=== PATIENT | male | born 1950 | race Caucasian/White ===

== ENCOUNTER 2017-03-04 08:36 | Inpatient (IN) | payer BC ==
[2017-02-10 11:08] VITALS: BMI 40.0
--- NOTE | 2017-02-10 11:42 | PAT Medication Instructions ---
Service Date Feb 10, 2017. Current Home Medication List Amlodipine (Norvasc), 5 MG PO QAM Aspirin (Aspirin Ec), 81 MG PO QAM Carvedilol (Coreg), 12.5 MG PO BID Cholecalciferol (Vitamin D3), 1 TAB PO BID Fluoxetine (Prozac), 20 MG PO HS Melatonin (Melatonin Maximum Strengt), 1 TAB PO HS Omeprazole (Prilosec), 20 MG PO QAM Simvastatin (Zocor), 40 MG PO QPM Valsartan (Diovan), 160 MG PO QAM [Allergy Relief], 1 DOSE PO PRN Medication Instructions For Your Scheduled Surgery - Hold the following medications the morning of surgery: [Allergy Relief], 1 DOSE PO PRN Valsartan (Diovan), 160 MG PO QAM Cholecalciferol (Vitamin D3), 1 TAB PO BID - Take the following medications the morning of surgery with a sip of water: Amlodipine (Norvasc), 5 MG PO QAM Aspirin (Aspirin Ec), 81 MG PO QAM (okay to continue per surgeon) Carvedilol (Coreg), 12.5 MG PO BID Omeprazole (Prilosec), 20 MG PO QAM - Take the following medications as scheduled the night before surgery: [Allergy Relief], 1 DOSE PO PRN Simvastatin (Zocor), 40 MG PO QPM Melatonin (Melatonin Maximum Strengt), 1 TAB PO HS Cholecalciferol (Vitamin D3), 1 TAB PO BID Fluoxetine (Prozac), 20 MG PO HS Carvedilol (Coreg), 12.5 MG PO BID If you have any questions please call us at [phone] or [phone] or [phone]
[2017-02-10 12:14] LABS: BASO % 0.4 %; BASO ABS # 0.02 K/uL (0-0.2); COMPLETE YES; EOS % 3.9 %; HEMATOCRIT 37.4 % (42-52); IG% 0.2 %; LYMPH % 22.5 %; LYMPH ABS # 1.16 K/uL (1.2-3.4); MEAN CELL VOLUME 86.6 fL (80-100); MEAN CORPUSCULAR HEMOGLOBIN 30.6 pg (25-34); MEAN CORPUSCULAR HGB CONC 35.3 g/dl (32-36); MEAN PLATELET VOLUME 8.8 fL (7.4-10.4); MONO % 9.5 %; NEUT % 63.5 %; PLATELET COUNT 141 K/uL (130-400); RED BLOOD COUNT 4.32 M/uL (4.7-6.1); WHITE BLOOD COUNT 5.16 K/uL (4.8-10.8)
--- NOTE | 2017-02-10 12:18 | DIAGNOSTIC IMAGING REPORT ---
CHEST PREADMISSION(PA/LAT) CLINICAL HISTORY: Preoperative chest COMPARISON STUDY: No previous studies for comparison. FINDINGS: The heart is borderline enlarged. There is no failure. There is no lobar consolidation. Slight increased density visualized in the lateral view posteriorly, likely represents a summation of vertebral bodies and vascular markings.[ No pleural effusions are visualized. IMPRESSION: No active disease in the chest. Electronically signed by: Sammy Larkin M.D. 02/10/2017 12:16 PM Dictated Date/Time: 02/10/2017 12:15 PM
[2017-02-10 12:20] LABS: BUN/CREATININE RATIO 18.3 (10-20); CALCIUM 9.3 mg/dl (8.5-10.1); CREATININE 1.2 mg/dl (0.60-1.40); URINE APPEARANCE CLEAR (CLEAR); URINE BILIRUBIN NEG (NEG); URINE COLOR YELLOW; URINE NITRITE NEG (NEG); URINE PH 6.5 (4.5-7.5); URINE SPECIFIC GRAVITY 1.016 (1.000-1.030); UROBILINOGEN NEG (NEG); ZZUR CULT IF INDIC CLEAN CATCH NO
[2017-02-10 12:24] LABS: PARTIAL THROMBOPLASTIN RATIO 1.1; PROTHROMBIN TIME (PATIENT) 10.5 SECONDS (9.0-12.0)
[2017-02-10 12:29] LABS: ESTIMATED AVERAGE GLUCOSE 128 mg/dl; HA1C FLAG Normal (Normal)
[2017-02-10 12:31] LABS: MANUAL MICROSCOPIC REQUIRED? NO; REVIEW REQ? NO
--- NOTE | 2017-03-03 14:14 | HISTORY & PHYSICAL EXAMINATION ---
DATE OF ADMISSION: 03/04/2017 CHIEF COMPLAINT: Left knee pain. HISTORY OF PRESENT ILLNESS: The patient is a 66-year-old gentleman with known osteoarthritis about his left knee. He has had previous corticosteroid injection by his primary care physician with minimal relief. He takes some [id number] anti-inflammatories and Tylenol intermittently as needed. He states severe pain and limitation with activities of daily living and now desires to proceed with left total knee arthroplasty. PAST MEDICAL HISTORY: Coronary artery disease, hypertension, hypercholesterolemia, sleep apnea with CPAP use. PAST SURGICAL HISTORY: Colonoscopy. MEDICATIONS: Simvastatin 40 mg daily, carvedilol 6.25 mg 2 times daily, amlodipine 10 mg daily, Diovan 160 mg daily, melatonin 5 mg daily, vitamin D3 daily, aspirin 81 mg daily, vitamin D3 400 units daily, valsartan 160 mg daily, and fluoxetine 20 mg daily. ALLERGIES: No known drug allergies. SOCIAL HISTORY AND REVIEW OF SYSTEMS: Noncontributory. PHYSICAL EXAMINATION: GENERAL: Well-nourished, well-developed elderly male who appears his stated age. HEENT: Normocephalic, atraumatic, extraocular movements intact, oropharynx pink and moist. NECK: Supple without adenopathy. LUNGS: Clear to auscultation bilaterally. HEART: Regular rate and rhythm. ABDOMEN: Soft, nontender, nondistended. EXTREMITIES: The upper extremity within normal limits. The left knee has a slight varus alignment. He complains primarily of medial compartment pain. His range of motion from 0 to 125 degrees. X-RAYS: X-rays were reviewed. He has a varus aligned knee. He has bone on bone arthritis of the medial compartment on the flexion view with complete loss of the joint space. ASSESSMENT: Left knee degenerative joint disease. PLAN: Risks versus benefits were discussed, consent was obtained. Will proceed with a left total knee arthroplasty upon preop workup and medical clearance.
[~2017-03-04] VITALS: Ht 188 cm; Wt 143.3 kg
[2017-03-04] VITALS (7 sets, daily range): BP systolic 125–155; BP diastolic 74–99; PULSE 61–82; TEMP 35.9–36.8; O2SAT 91–97; Ht 188 cm; Wt 143.3 kg
[2017-03-04] MEDS: TRANEXAMIC ACID INJ 1,000 MG in SODIUM CHLORIDE 0.9% 100ML 100 ML IV SCH ×2 (06:30→11:00)
[~2017-03-04 08:36] MED LIST: ACETAMINOPHEN 500 MG TAB PO SCH; ALLERGY RELIEF PO; AMLO-110 PO; ASPI81TA28 PO; BUPIVACAINE 0.25% 30 ML VIAL ONE; BUPIVACAINE 0.5 % 5 MG/1 ML PF 10ML VIAL ONE; CARV12.52 PO; CEFAZOLIN 3000 MG/65 ML D5W 65 ML IV SCH; CHOL20007 PO; CeleBREX 200 MG CAP PO SCH; DEXAMETHASONE 4 MG TAB PO SCH; DEXAMETHASONE SOD INJ 4 MG/ML VIAL ONE; DVN/160 PO; EpINEphrine INJ 1MG/ML AMP 1 MG/ML AMP ONE; FAMOTIDINE 20 MG TAB PO SCH; FENTANYL CITRATE INJ 50 MCG/1 ML 2 ML VIAL ONE; FLUO20CA35 PO; GABAPENTIN 300 MG CAP PO SCH; LACTATED RINGER'S 1000ML 1,000 ML IV SCH; LACTATED RINGER'S 1000ML 500 ML IV ONE; LACTATED RINGER'S 1000ML IV SCH; LIDOCAINE HCL 2% 2 ML VIAL (20MG/ML) ONE; MELATAB2 PO; METOCLOPRAMIDE HCL 10 MG TAB PO SCH; MIDAZOLAM HCL 1 MG/ML 2ML VIAL ONE; ONDANSETRON INJ 2 MG/ML 2 ML VIAL ONE; PRLSR20 PO; PROPOFOL IV EMULSION 10 MG/ML 20 ML VIAL IV ONE; ROPIVACAINE 5MG/ML 30 ML 150 MG, BUPIVACAINE/EPINEPHR 0.5% MPF 30 ML, KETOROLAC TROMETH... INFIL SCH; SIMV40TA2 PO
[2017-03-04] MEDS ORDERED: TYLOTC500 PO (09:08)
[2017-03-04] MEDS ORDERED: OXYC-57 PO (09:08)
--- NOTE | 2017-03-04 09:16 | History & Physical Bridge Note ---
H&P Re-Evaluation Bridge Note: I have examined the patient, reviewed the History & Physical and in the interval since the performance of the History & Physical I have noted the following changes of clinical significance: No changes noted
[2017-03-04] MEDS ORDERED: BACITRACIN 50000 UNIT VIAL ONE (11:03)
[2017-03-04] MEDS ORDERED: POVIDONE-IODINE OP SOLN 30 ML BTL ONE (11:03)
[2017-03-04] MEDS ORDERED: ORTHO JOINT ANESTHETIC ONE (11:03)
[2017-03-04] MEDS ORDERED: FENTANYL CITRATE INJ 50 MCG/1 ML 2 ML VIAL IV PRN (11:45)
[2017-03-04] MEDS ORDERED: ATROPINE SULFATE 0.1 MG/ML 5ML SYR IV PRN (11:45)
[2017-03-04] MEDS ORDERED: EpHEDrine SULFATE INJ 50 MG/ML AMP IV PRN (11:45)
[2017-03-04] MEDS ORDERED: ONDANSETRON INJ 2 MG/ML 2 ML VIAL IV PRN ×2 (11:45→13:15)
[2017-03-04] MEDS ORDERED: MIDAZOLAM HCL 1 MG/ML 2ML VIAL ONE ×3 (11:52→12:32)
--- NOTE | 2017-03-04 12:27 | [facility] Post Operative Brief Note ---
Immediate Operative Summary Operative Date Mar 04, 2017. Pre-Operative Diagnosis Left Knee Degenerative Joint Disease Post-Operative Diagnosis Left Knee Degenerative Joint Disease Procedure(s) Performed Left Total Knee Arthroplasty Surgeon Dr. Colin [facility] Manager Surgeon(s) Yonathan Huertas PA-C Estimated Blood Loss 20ML Findings severe OA Specimens Permanent: A. Left Knee Bone and Tissue Complication(s) None Disposition Recovery Room / PACU
--- NOTE | 2017-03-04 12:45 | OPERATIVE REPORT ---
DATE OF OPERATION: 03/04/2017 PREOPERATIVE DIAGNOSIS: Osteoarthritis, left knee. POSTOPERATIVE DIAGNOSIS: Osteoarthritis, left knee. PROCEDURE: Left total knee arthroplasty. SURGEON: Dr. Ovalle. [employer] SUPERVISOR: ERICA Delgado ANESTHESIA: Spinal. COMPLICATIONS: None. IMPLANTS USED: Femoral size 6 with fixation pegs, tibia size 5, tibial poly 13, and patella size 39. OPERATION AND FINDINGS: Following induction of spinal anesthesia, the patient's left leg was prepped and draped in the usual sterile manner. Limb was exsanguinated with an Esmarch bandage and tourniquet was inflated to 350 mmHg. A longitudinal incision was made anteriorly. Subcutaneous tissue was sharply dissected. Electrocautery was used for hemostasis. Prepatellar bursa was incised and median parapatellar incision was performed. Patella was everted and the knee was flexed. Fat pad was removed to aid in visualization and the anterior and posterior cruciate ligaments were removed. The medial face of the tibia was cleared of soft tissue first with a Bovie and a Heart elevator. This tissue was retracted posteriorly using a blunt Hohmann. A Gresham retractor was used to expose the synovium above on the anterior aspect of the femur and this was removed down to bone. The PSI guide was placed on the distal femur and two pins were placed anteriorly and kept in position and two additional pins were placed distally and removed. The distal femoral cutting block was placed in position and the distal femoral cut was used in the +0 setting. Next, the cutting block was removed and the femoral 6 block was placed in the distal end of the femur. Care was taken to ensure appropriate external rotation and feeler gauge was used to ensure no notching would occur. The femoral block was centered on the distal femur and in the medial and lateral direction and was fixed using two bone screws. The gold pins were then removed. The oscillating saw was used to create the bone cuts and the distal femoral cutting block was removed and the reciprocating saw was used to further trim the femoral cuts as well as a deep in the area for the trochlear groove. Next, posterior condyle remnants were removed. Following this, a meniscal clamp and knife were utilized to remove the anterior portion of both medial and lateral meniscus. The proximal tibia PSI guide was placed into position and the proximal tibial cutting guide was screwed into position. The extra medullary alignment guide was utilized to ensure appropriate alignment. The proximal tibia was cut and the proximal tibial cutting block was removed and this bone fragment was removed. The appropriate guide was used to perform the notch cut on the distal femur and a lamina sawing and assembly supervisor and a cochlear knife were utilized to finish both medial and lateral meniscectomies to remove any remnants of the posterior or anterior cruciate ligaments. Following this, the distal femoral component was impacted into position and blunt Emily was used to sublux the tibia anteriorly. The proximal tibia was sized and a 5 tibial tray was chosen as the size to be used. This was put into position and appropriate external rotation and a double check with extramedullary alignment guide was performed. The canal for the tibial stem was prepared first with a 17 mm drill and then the punch and a mallet and the trial tibial poly was placed. A 13 was chosen the size to be used. It was brought to extension and the patella was prepared with the patellar reamer. A 39 component was chosen the size to be used. The trial component was placed and knee was taken through a full range of motion and there was found to be no lateral subluxation of the tibia. No lateral release was required. The trials were all removed. The final components were obtained and assembled. Cement was mixed. The knee was thoroughly irrigated and the ortho mix was injected about the knee joint. The final components were cemented into position. After thoroughly suctioning and drying the bone ends, all excess cement was removed. The knee was held in extension while the cement hardened. The wound was irrigated and closed over a Hemovac drain. #1 Vicryl was used to close the extensor mechanism. Subcutaneous tissues closed using 0 Dexon. Skin was closed with odessa. Sterile dressing of Adaptic, 4 x 4's, sterile Webril, and David was applied. The patient tolerated the procedure well. Due to the complex nature of the procedure, the entire surgery was performed with the operational assistance of ERICA Delgado. The early childhood teacher assistant, under direct supervision, was involved in the actual performance of all aspects of the surgical procedure including hemostasis, tissue retraction and incision, instrument management, patient positioning, and wound closure. DISPOSITION: Recovery room, stable. I attest to the content of the Intraoperative Record and any orders documented therein. Any exception s are noted below.
[2017-03-04] MEDS ORDERED: TAMSULOSIN HCL 0.4 MG CAP PO PRN (13:15)
[2017-03-04] MEDS ORDERED: ALUMINUM/MAGNESIUM/SIMETH (MAALOX MAX) 30 ML UDC PO PRN (13:15)
[2017-03-04] MEDS ORDERED: BISACODYL 10 MG SUPP PR PRN (13:15)
[2017-03-04] MEDS ORDERED: MAGNESIUM HYDROXIDE SUSP 30 ML UDC PO PRN (13:15)
[2017-03-04] MEDS ORDERED: MoRPHine SULFATE 2 MG/ML CARP IV PRN ×2 (13:15→13:30)
[2017-03-04] MEDS ORDERED: TRAMADOL HCL 50 MG TAB PO PRN (13:15)
[2017-03-04] MEDS ORDERED: MoRPHine SULFATE 10 MG/ML CARP/VIAL IV PRN (13:30)
[2017-03-04] MEDS ORDERED: MoRPHine SULFATE 4 MG/ML 1 ML CARP\\VIAL IV PRN (13:30)
--- NOTE | 2017-03-04 13:45 | DIAGNOSTIC IMAGING REPORT ---
TWO VIEWS LEFT KNEE CLINICAL HISTORY: Postoperative examination. FINDINGS: AP and crosstable lateral portable views of the left knee are obtained. A left knee arthroplasty is in near anatomic alignment. There has been undersurface remodeling of the patella. No acute fracture is seen. There are expected postoperative changes around the knee including skin clips, a surgical drain, soft tissue edema, and subcutaneous gas. IMPRESSION: Expected postoperative changes status post left knee arthroplasty. No acute fracture is seen. Electronically signed by: Felix Hernadez M.D. 03/04/2017 1:43 PM Dictated Date/Time: 03/04/2017 1:40 PM
--- NOTE | 2017-03-04 13:52 | Anesthesiology Progress Note ---
Anesthesia Post Op Note Date & Time Mar 04, 2017 at 13:51 Vital Signs Pain Intensity: 0 Vital Signs Past 12 Hours Date Time Temp Pulse Resp B/P (MAP) Pulse Ox O2 Delivery O2 Flow Rate FiO2 03/04/17 13:43 70 20 03/04/17 13:43 70 20 98 03/04/17 13:41 123/82 03/04/17 13:38 64 15 03/04/17 13:38 63 15 98 03/04/17 13:36 137/86 03/04/17 13:35 36.7 66 18 137/86 (97) 98 Nasal Cannula 2 03/04/17 13:33 63 12 03/04/17 13:33 62 12 98 03/04/17 13:32 63 13 03/04/17 13:32 63 13 98 03/04/17 13:31 136/82 03/04/17 13:27 65 22 03/04/17 13:27 67 22 97 03/04/17 13:26 130/84 03/04/17 13:24 65 21 03/04/17 13:24 66 21 99 03/04/17 13:21 120/92 03/04/17 13:19 62 13 03/04/17 13:19 61 13 99 03/04/17 13:16 136/82 03/04/17 13:14 63 12 98 03/04/17 13:14 63 12 03/04/17 13:12 127/89 03/04/17 13:09 59 25 03/04/17 13:09 36.3 58 16 140/88 (102) 99 Mask 10 03/04/17 13:09 62 25 140/88 98 03/04/17 09:00 36.5 61 20 155/99 96 Room Air Notes Mental Status: alert / awake / arousable, participated in evaluation Pt Amnestic to Procedure: Yes Nausea / Vomiting: adequately controlled Pain: adequately controlled Airway Patency, RR, SpO2: stable & adequate BP & HR: stable & adequate Hydration State: stable & adequate Neuraxial Anesthesia: was administered, sensory block is resolving Anesthetic Complications: no major complications apparent
[2017-03-04] MEDS ORDERED: INFLUENZA ADMINISTRATION CHARGE ONE (15:45)
[2017-03-04] MEDS ORDERED: INFLUENZA VIRUS QUAD VACCINE 0.5 ML SYR IM. ONE (15:45)
[2017-03-04] MEDS: D5W AND 1/2NSS + 20MEQ KCL 1,000 ML IV SCH ×2 (15:46→23:59)
[2017-03-04] MEDS: FERROUS GLUCONATE 324 MG TAB PO SCH (17:51)
[2017-03-04] MEDS: KETOROLAC TROMETHAMINE 30 MG/ML VIAL IV. SCH (17:53)
[2017-03-04] MEDS: CEFAZOLIN IV 3,000 MG in DEXTROSE 5% 50ML 50 ML IV SCH (19:57)
[2017-03-04] MEDS: FLUOXETINE HCL 20 MG CAP PO SCH (21:12)
[2017-03-04] MEDS: DOCUSATE SODIUM 100 MG CAP PO SCH (21:12)
[2017-03-04] MEDS: ASPIRIN 81 MG ECTAB PO SCH (21:12)
[2017-03-04] MEDS: SENNA 8.6 MG TAB PO SCH (21:13)
[2017-03-04] MEDS: SIMVASTATIN 40 MG TAB PO SCH (21:13)
[2017-03-04] MEDS: ACETAMINOPHEN 500 MG TAB PO SCH (21:14)
[2017-03-04] MEDS: CARVEDILOL 12.5 MG TAB PO SCH (21:14)
[2017-03-05] MEDS: CEFAZOLIN IV 3,000 MG in DEXTROSE 5% 50ML 50 ML IV SCH (03:41)
[2017-03-05 03:54] VITALS: BP 150/91; PULSE 73; TEMP 36.5; O2SAT 93
[2017-03-05] MEDS: KETOROLAC TROMETHAMINE 30 MG/ML VIAL IV. SCH ×2 (05:35)
[2017-03-05] MEDS: ACETAMINOPHEN 500 MG TAB PO SCH ×3 (05:35→21:04)
[2017-03-05 06:54] VITALS: BP 132/81; PULSE 77; TEMP 36.4; O2SAT 93
[2017-03-05 06:58] LABS: HEMATOCRIT 30.3 % (42-52); MEAN CELL VOLUME 85.8 fL (80-100); MEAN PLATELET VOLUME 9.1 fL (7.4-10.4); PLATELET COUNT 154 K/uL (130-400); RED BLOOD COUNT 3.53 M/uL (4.7-6.1); WHITE BLOOD COUNT 11.67 K/uL (4.8-10.8)
[2017-03-05 07:26] LABS: BUN/CREATININE RATIO 14.9 (10-20); CALCIUM 8.4 mg/dl (8.5-10.1); CREATININE 1.5 mg/dl (0.60-1.40); POTASSIUM 4.2 mmol/L (3.5-5.1)
--- NOTE | 2017-03-05 07:30 | Orthopedic Progress Note ---
Orthopedic Progress Note Date of Service Mar 05, 2017. Subjective Post OP Day: 1 Reports: feeling well Objective N/V intact, dressing C/D/I (Hemovac in place), toes mobile Date Time Temp Pulse Resp B/P (MAP) Pulse Ox O2 Delivery O2 Flow Rate FiO2 03/05/17 06:54 36.4 77 16 132/81 (98) 93 Room Air 03/05/17 03:54 36.5 73 16 150/91 (110) 93 Room Air 03/05/17 00:04 Room Air CPAP 03/04/17 23:13 36.4 75 16 125/74 (91) 91 Room Air 03/04/17 17:16 36.5 78 18 153/92 (112) 97 Nasal Cannula 2.0 03/04/17 16:15 35.9 82 16 150/99 (116) 96 Nasal Cannula 2.0 03/04/17 15:45 Nasal Cannula 2.0 03/04/17 15:15 36.5 77 18 146/90 (108) 95 Nasal Cannula 2.0 03/04/17 14:51 36.4 71 20 129/84 (99) 95 Nasal Cannula 2.0 03/04/17 14:15 36.8 69 16 141/88 (105) 95 Nasal Cannula 2.0 03/04/17 14:15 95 Nasal Cannula 2.0 03/04/17 14:15 95 Nasal Cannula 2.0 03/04/17 13:56 135/86 03/04/17 13:54 66 14 97 03/04/17 13:54 66 14 03/04/17 13:51 130/82 03/04/17 13:49 62 13 03/04/17 13:49 62 13 96 03/04/17 13:46 133/84 03/04/17 13:44 65 17 03/04/17 13:44 65 17 95 03/04/17 13:43 70 20 03/04/17 13:43 70 20 98 03/04/17 13:41 123/82 03/04/17 13:38 64 15 03/04/17 13:38 63 15 98 03/04/17 13:36 137/86 03/04/17 13:35 36.7 66 18 137/86 (97) 98 Nasal Cannula 2 03/04/17 13:33 63 12 03/04/17 13:33 62 12 98 03/04/17 13:32 63 13 03/04/17 13:32 63 13 98 03/04/17 13:31 136/82 03/04/17 13:27 65 22 03/04/17 13:27 67 22 97 03/04/17 13:26 130/84 03/04/17 13:24 65 21 03/04/17 13:24 66 21 99 03/04/17 13:21 120/92 03/04/17 13:19 62 13 03/04/17 13:19 61 13 99 03/04/17 13:16 136/82 03/04/17 13:14 63 12 98 03/04/17 13:14 63 12 03/04/17 13:12 127/89 03/04/17 13:09 59 25 03/04/17 13:09 36.3 58 16 140/88 (102) 99 Mask 10 03/04/17 13:09 62 25 140/88 98 03/04/17 09:00 36.5 61 20 155/99 96 Room Air Laboratory Results 24 Hours: Test 03/05/17 06:08 Hematocrit 30.3 % Hemoglobin 10.6 g/dL Assessment & Plan Assessment: 66 yo male stable POD #1 s/p left TKA Plan: 1. Med management 2. DVT prophylaxis- ASA, SCDs 3. PT/OT 4. D/C planning- home w/ OPPT
--- NOTE | 2017-03-05 07:32 | Discharge Instructions ---
Discharge Instructions Date of Service Mar 05, 2017. Admission Reason for Admission: Left Knee Osteoarthritis Discharge Discharge Diagnosis / Problem: Left knee arthritis Discharge Goals Goal(s): Decrease discomfort, Improve function Activity Recommendations Activity Limitations: as noted below Weightbearing Status: Left weightbearing (as tolerated) . Instructions / Follow-Up Instructions / Follow-Up ACTIVITY RECOMMENDATIONS: SELF CARE INSTRUCTIONS AFTER TOTAL KNEE REPLACEMENT A. You may need to continue a physical therapy program after discharge from the hospital. There are several options available to you. Your doctor will assist you in selecting the best one for you. 1. An out-patient facility 2 to 3 times a week for therapy or home therapy. 2. Continue working on all exercises taught to you in the hospital. Your goals should be to increase bending of your knee to 90 degrees and beyond and to fully straighten your knee. B. You may progress at your own pace from walking with a walker or crutches to a cane; then to no assistive devices. C. Make walking a part of your daily routine. Be up as much as comfortable with rest periods throughout the day. Rest with leg elevation is very important. Use the ice wrap frequently for the first 3-4 weeks. D. There are no restrictions on activities. You may ride in a car, shop, participate in hand i cutter and all social activities. E. Wear the long elastic stockings (ROSAS hose) 20 hours a day for 2 weeks after surgery. They can be removed several times a day for laundering and for a bath. F. You may shower, no tub baths until cleared by your doctor. SPECIAL CARE INSTRUCTIONS: VERY IMPORTANT TO READ AND REVIEW A. There are a few signs you need to watch for after you are home. Call [facility] if you notice any of the followin. Increased severe knee pain. Some pain is expected especially when you exercise. 2. Increased swelling in your leg or knee; pain or swelling of the calf muscle in either lower leg. 3. Any fluid drainage from the incision. 4. Shortness of breath or chest pain. B. Please call [facility] at if you have any concerns or questions about your operation or recovery. The doctor or his nurse will return your call promptly. C. You must take antibiotics before dental work, bladder, bowel or other surgery. Your doctor will provide you with a permanent care to carry describing this precaution. IMPORTANT: * REMEMBER TO TAKE ASPIRIN, 81 MG, TWICE DAILY FOR 4 WEEKS UNLESS OTHERWISE DIRECTED. THIS IS YOUR BLOOD THINNER. * HIGH RISK PATIENTS MAY BE PRESCRIBED A STRONGER BLOOD THINNER. THIS WILL BE PROVIDED AT DISCHARGE. * CALL IF INCREASED PAIN, REDNESS, DRAINAGE OR FEVER GREATER THAT 101. * WEAR ROSAS HOSE 20 HOURS PER DAY FOR 2 WEEKS. Silverlon- This is a large adhesive bandage that contains silver ions. This helps your incision heal by fighting off bacteria and protecting it from the outside environment. You are permitted to shower with this dressing. This will remain on your incision for 7 days and then should be removed. Some visible blood or drainage through the dressing window is normal. If there is significant drainage or leaking noted before the 7 days notify your doctor's office immediately. Once removed, keep incision clean and dry. If there is any drainage or redness noted, please call your surgeon. FOLLOW UP VISIT: If appointment is not already scheduled: Please call [facility] to make a follow-up appointment for 2 weeks after your surgery at . Current Hospital Diet Patient's current hospital diet: AHA Diet (Heart Healthy) Discharge Diet Recommended Diet: AHA Diet (Heart Healthy) Procedures Procedures Performed: Left Total Knee Arthroplasty Pending Studies Studies pending at discharge: no Laboratory Results Hemoglobin A1c Test 02/10/17 11:50 Range/Units Estimated Average Glucose 128 mg/dl Hemoglobin A1c 6.1 H 4.5-5.6 % Medical Emergencies . Who to Call and When: Medical Emergencies: If at any time you feel your situation is an emergency, please call 911 immediately. . Non-Emergent Contact Non-Emergency issues call your: Surgeon Call Non-Emergent contact if: temperature is above 101.5, your pain is not controlled, wound has increased drainage, wound has increased redness . "Provider Documentation" section prepared by Krystian Bowers PA-C. . VTE Core Measure Inpt VTE Proph given/why not?: Other Anticoagulation (ASA 81mg bid), T.E.D. Stockings, SCD's [place] Drug Monitoring Program Search Results: patient reviewed within database, no issues identified
--- NOTE | 2017-03-05 08:33 | Anesthesiology Progress Note ---
Anesthesia Post Op Note Date & Time Mar 05, 2017 at 08:33 Vital Signs Vital Signs Past 12 Hours Date Time Temp Pulse Resp B/P (MAP) Pulse Ox O2 Delivery O2 Flow Rate FiO2 03/05/17 07:20 Room Air 03/05/17 06:54 36.4 77 16 132/81 (98) 93 Room Air 03/05/17 03:54 36.5 73 16 150/91 (110) 93 Room Air 03/05/17 00:04 Room Air CPAP 03/04/17 23:13 36.4 75 16 125/74 (91) 91 Room Air Notes Mental Status: alert / awake / arousable, participated in evaluation Pt Amnestic to Procedure: Yes Nausea / Vomiting: adequately controlled Pain: adequately controlled Airway Patency, RR, SpO2: stable & adequate BP & HR: stable & adequate Hydration State: stable & adequate Neuraxial Anesthesia: was administered, sensory block resolved Anesthetic Complications: no major complications apparent
[2017-03-05] MEDS: OXYCODONE HCL IR 5 MG TAB (IMMEDIATE RELEASE) PO PRN ×2 (09:02→17:27)
[2017-03-05] MEDS: VALSARTAN 80 MG TAB PO SCH (09:03)
[2017-03-05] MEDS: CARVEDILOL 12.5 MG TAB PO SCH ×2 (09:03→21:03)
[2017-03-05] MEDS: MULTIVITAMIN TAB PO SCH (09:03)
[2017-03-05] MEDS: FERROUS GLUCONATE 324 MG TAB PO SCH ×3 (09:04→18:34)
[2017-03-05] MEDS: PANTOprazole SOD 40 MG TAB PO SCH (09:04)
[2017-03-05] MEDS: DOCUSATE SODIUM 100 MG CAP PO SCH ×2 (09:04→21:03)
[2017-03-05] MEDS: ASPIRIN 81 MG ECTAB PO SCH ×2 (09:04→21:03)
[2017-03-05] MEDS: AMLODIPINE BESYLATE 5 MG TAB PO SCH (09:05)
[2017-03-05 09:46] VITALS: BP 151/80; PULSE 71; O2SAT 97
--- NOTE | 2017-03-05 09:53 | Clinical Documentation Query ---
CLINICAL DOCUMENTATION QUERY QUERY 1 OF 2 A 66-year-old gentleman with known osteoarthritis about his left knee. In your clinical opinion is this patient being managed for: ( ) Acute kidney failure ( X ) Not Agree ( ) Other explanation of clinical findings (Please Explain) ( ) Unable to determine (Please Define) ( ) Need to Discuss The medical record reflects the following clinical findings, treatment, and risk factors. Clinical Indicators: Creatine increase from 1.20 to 1.50, Na 135, GFR decrease from 63.5 to 48.5 Treatment: IV hydration Risk Factors: S/P surgical intervention QUERY 2 OF 2 In order to capture a high BMI, documentation of the patient's physical condition must be captured; i.e. obese, overweight, etc. In your clinical opinion is this patient being managed for: ( X ) Obesity ( ) Not Agree ( ) Other explanation of clinical findings (Please Explain) ( ) Unable to determine (Please Define) ( ) Need to Discuss The medical record reflects the following clinical findings, treatment, and risk factors. Clinical Indicators: BMI 40.5 Treatment: Heart healthy diet Risk Factors: s/p surgical intervention, high BMI Please clarify and document your clinical opinion in the progress notes and discharge summary. Terms such as "probable", "suspected", "likely", "questionable", "possible", or "still to be ruled out" are acceptable. IF IN AGREEMENT, YOU MUST DOCUMENT ABOVE DIAGNOSTIC STATEMENT IN DAILY PROGRESS NOTES AND DISCHARGE SUMMARY. This document is not part of the patient's record. Thank You, Liz Wall RN [phone]
[2017-03-05] MEDS: D5W AND 1/2NSS + 20MEQ KCL 1,000 ML IV SCH (10:23)
[2017-03-05 13:29] VITALS: BP 153/80; PULSE 70; O2SAT 97
[2017-03-05 16:17] VITALS: BP 158/84; PULSE 67; TEMP 36.6; O2SAT 97
[2017-03-05] MEDS: CeleBREX 200 MG CAP PO SCH (21:03)
[2017-03-05] MEDS: SENNA 8.6 MG TAB PO SCH (21:38)
[2017-03-05] MEDS: FLUOXETINE HCL 20 MG CAP PO SCH (21:39)
[2017-03-05] MEDS: SIMVASTATIN 40 MG TAB PO SCH (21:39)
[2017-03-05 23:04] VITALS: BP 150/91; PULSE 76; TEMP 36.3; O2SAT 94
[2017-03-06] MEDS: ACETAMINOPHEN 500 MG TAB PO SCH (05:42)
[2017-03-06 06:02] VITALS: BP 147/70; PULSE 70; TEMP 36.4; O2SAT 97
[2017-03-06] MEDS: AMLODIPINE BESYLATE 5 MG TAB PO SCH (07:33)
[2017-03-06] MEDS: FERROUS GLUCONATE 324 MG TAB PO SCH (07:33)
[2017-03-06] MEDS: VALSARTAN 80 MG TAB PO SCH (07:34)
[2017-03-06] MEDS: MULTIVITAMIN TAB PO SCH (07:35)
[2017-03-06] MEDS: OXYCODONE HCL IR 5 MG TAB (IMMEDIATE RELEASE) PO PRN (07:35)
--- NOTE | 2017-03-06 07:45 | Orthopedic Progress Note ---
Orthopedic Progress Note Date of Service Mar 06, 2017. Subjective Post OP Day: 2 Reports: feeling well Objective calves soft nontender, N/V intact, dressing C/D/I, toes mobile Date Time Temp Pulse Resp B/P (MAP) Pulse Ox O2 Delivery O2 Flow Rate FiO2 03/06/17 06:02 36.4 70 16 147/70 (95) 97 Room Air 03/06/17 00:39 Room Air CPAP 03/05/17 23:04 36.3 76 16 150/91 (110) 94 CPAP 03/05/17 16:17 36.6 67 17 158/84 (108) 97 Room Air 03/05/17 15:10 Room Air 03/05/17 13:29 70 16 153/80 (104) 97 Room Air 03/05/17 09:46 71 97 Assessment & Plan Assessment: 66 yo male stable POD #2 s/p left TKA Plan: 1. Med management 2. DVT prophylaxis- ASA, SCDs 3. PT/OT 4. D/C planning- home w/ OPPT
[2017-03-06] MEDS ORDERED: ASPEC81 PO (07:47)
[2017-03-06] MEDS ORDERED: ONDA8TAB12 PO (07:47)
[2017-03-06] MEDS ORDERED: ACET-24 PO (07:47)
[2017-03-06] MEDS ORDERED: RXC5 PO (07:47)
[2017-03-06] MEDS ORDERED: CLB200 PO (07:47)
[2017-03-06] MEDS: CARVEDILOL 12.5 MG TAB PO SCH (07:54)
[2017-03-06] MEDS: PANTOprazole SOD 40 MG TAB PO SCH (07:54)
[2017-03-06] MEDS: CeleBREX 200 MG CAP PO SCH (07:55)
[2017-03-06] MEDS: ASPIRIN 81 MG ECTAB PO SCH (07:55)
[2017-03-06] MEDS: DOCUSATE SODIUM 100 MG CAP PO SCH (07:55)
[2017-03-06 09:21] VITALS: BP 147/70; PULSE 70; TEMP 36.4; O2SAT 97
--- NOTE | 2017-03-08 13:50 | DISCHARGE SUMMARY ---
DISCHARGE DIAGNOSIS: Degenerative joint disease left knee. SECONDARY DIAGNOSES: Coronary artery disease, hypertension, hypercholesterolemia, sleep apnea with CPAP use. CONSULTS: None. COMPLICATIONS: None. PROCEDURES: Left total knee arthroplasty performed by Dr. Ovalle 03/04/2017. BRIEF HISTORY: As dictated in the history and physical. HOSPITAL SUMMARY: The patient was admitted on the above-noted date and had the above-noted surgery performed which he tolerated well. On the first postoperative day he was feeling well, neurovascularly intact, dressings clean, dry and intact. Toes were mobile. Vital signs were stable. He was afebrile. Hemoglobin was 10.6 and he was started on physical therapy protocol and continued on DVT prophylaxis and pain management. By his second postoperative day, he was continuing to feel well. He was progressing with his physical therapy. Dressings were intact. Toes were mobile. Neurovascular intact. Calves were nontender. Vital signs were stable and it was felt he could be discharged to home with outpatient PT. For further review, please see chart. LAB AND X-RAY DATA: As per chart. DISCHARGE INSTRUCTIONS: The patient was discharged to home in satisfactory condition on 03/06/2017. DIET: Regular heart healthy. ACTIVITY: Weightbearing as tolerated left lower extremity. Follow TK instruction sheets and special care instructions as noted. Follow up with Dr. Ovalle in 2 weeks. The patient to call for appointment if one has not been made for you. DISCHARGE MEDICATIONS: Acetaminophen 1000 mg p.o. q. 8 hours for 14 days, aspirin 81 mg p.o. b.i.d., Celebrex 200 mg p.o. b.i.d., Zofran 8 mg p.o. q. 8 hours p.r.n., oxycodone 5-10 mg p.o. q. 4 hours p.r.n. Resume home meds as listed. Stop taking original dose of Tylenol at home. After 30 days resume your once daily dosing of aspirin and stop taking Percocet.
== END 2017-03-06 10:30 | disposition home or self-care (01) | DRG 470 ==
LOC: C.ACU 08:36 → C.3E 13:15 → ENRESERV 13:32 → UNDODISIN 03-05 12:09
PROC: 0SRD0J9 Replacement of Left Knee Joint with Synthetic Substitute, Cemented, Open Approach (ICD-10-PCS; principal; 2017-03-04 11:15)
DX: M17.12 Unilateral primary osteoarthritis, left knee (principal); I25.10 Atherosclerotic heart disease of native coronary artery without angina pectoris; I10 Essential (primary) hypertension; E78.00 Pure hypercholesterolemia, unspecified; G47.30 Sleep apnea, unspecified; Z79.82 Long term (current) use of aspirin

== ENCOUNTER 2019-04-03 04:55 | Inpatient (IN) ==
[2019-03-22 14:43] LABS: Basophils # (auto) 0.02 K/uL (0-0.2); Basophils % (auto) 0.3 %; Eosinophils # (auto) 0.27 K/uL (0-0.5); Eosinophils % (auto) 4.1 %; Hematocrit (blood only) 37.7 % (42-52); Hemoglobin 13.3 g/dL (14.0-18.0); Immature Granulocytes # (auto) 0.02 K/uL (0.00-0.02); Immature Granulocytes % (auto) 0.3 %; Lymphocytes # (auto) 1.29 K/uL (1.2-3.4); Lymphocytes % (auto) 19.8 %; Mean Corpuscular Hemoglobin 30.1 pg (25-34); Mean Corpuscular Hgb Conc 35.3 g/dL (32-36); Mean Corpuscular Volume 85.3 fL (80-100); Mean Platelet Volume 9.3 fL (7.4-10.4); Monocytes % (auto) 7.7 %; Neutrophils # (auto) 4.42 K/uL (1.4-6.5); Neutrophils % (auto) 67.8 %; Platelet Count 167 K/uL (130-400); RDW Coefficient of Variation 13.2 % (11.5-14.5); RDW Standard Deviation 41.1 fL (36.4-46.3); Red Blood Count 4.42 M/uL (4.7-6.1); White Blood Count 6.52 K/uL (4.8-10.8)
[2019-03-22 14:53] LABS: INR 1.1 (0.9-1.1); Prothrombin Time 10.9 Seconds (9.0-12.0)
[2019-03-22 15:00] LABS: Blood Urea Nitrogen 15 mg/dl (7-18); Calcium 9.2 mg/dl (8.5-10.1); Carbon Dioxide 27 mmol/L (21-32); Chloride 104 mmol/L (98-107); Est GFR (African American) 69.1; Est GFR (Non-African American) 59.6; Glucose 82 mg/dl (70-99); Sodium 137 mmol/L (136-145)
[2019-03-22 15:18] LABS: Appearance Urine Clear (Clear); Bilirubin Urine Negative (Negative); Blood Urine Negative (Negative); Color Urine Dark Yellow; Glucose Urine UA Negative (Negative); Ketones Urine Negative (Negative); Leukocyte Esterase Urine Negative (Negative); Nitrite Urine Negative (Negative); Protein Urine Negative (Negative); Specific Gravity Urine 1.018 (1.000-1.030); Urobilinogen Urine Negative (Negative)
[2019-03-22 15:22] LABS: Estimated Average Glucose 100 mg/dl; Hemoglobin A1C 5.1 % (4.5-5.6)
--- NOTE | 2019-03-27 13:44 | Anesthesiology Consultation ---
Date of Service March 27, 2019 Assessment & Plan (1) Encounter for pre-operative examination: Chart Review Chart Review: Acceptable Risk for Surgery and Patient NOT seen in Pre Admission Testing Consults Requested none History Surgery Operation Date: 04/03/19 07:00 Proposed Procedures p Left Total Knee Revision Arthroplasty, Tibial, Possible Femur - Darshan Hernandez DO Height/Weight Height: 6 ft 2 in Weight: 122.47 kg Allergies Allergy/AdvReac Type Severity Reaction Status Date / Time No Known Allergies Allergy Verified 03/14/19 12:13 Medications Home Medications Medication Instructions Recorded Confirmed Last Taken acetaminophen 1,000 mg PO Q6H PRN 11/23/18 03/14/19 Unknown amlodipine 5 mg PO QAM 11/23/18 03/14/19 Unknown aspirin [Aspirin Low Dose] 81 mg PO QPM 11/23/18 03/14/19 Unknown carvedilol 12.5 mg PO BID 11/23/18 03/14/19 Unknown cholecalciferol (vitamin D3) 2,000 unit PO BID 11/23/18 03/14/19 Unknown [Vitamin D3] olmesartan 40 mg PO QAM 11/23/18 03/14/19 Unknown omeprazole 20 mg PO QAM 11/23/18 03/14/19 Unknown simvastatin 40 mg PO PM 11/23/18 03/14/19 Unknown tamsulosin 0.4 mg PO BID 11/23/18 03/14/19 Unknown Cbd Oil 1 drp PO HS 03/14/19 Unknown fluoxetine 40 mg PO QAM 03/14/19 03/14/19 Unknown metformin 1,000 mg PO BID 03/14/19 03/14/19 Unknown sitagliptin [Januvia] 100 mg PO QAM 03/14/19 03/14/19 Unknown Past Medical History Medical History Anxiety BPH (benign prostatic hyperplasia) CAD (coronary artery disease) STENT X 1 (2009) Diabetes New diagnosis (hgba1c 12.6% on 11/30/18 preop labs) GERD (gastroesophageal reflux disease) CONTROLLED Hearing deficit Hyperlipidemia Hypertension Obesity Osteoarthritis Sleep apnea CPAP Exercise / Class Metabolic Activity II 4-5 Yardwork/Stairs/Walk up hill Past Family History Family History Grandfather (Maternal) Family history of diabetes mellitus Past Surgical History Surgical History History of cardiac cath ALL CATHS DONE AT [facility] 2009= STENT X 1, 2018= NO STENTS 2012= NO STENTS 2018= NO STENTS History of total left knee replacement 03/04/17: SAB x1 + PNB at [facility] Hx of colonoscopy Past Anesthesia History No Hx of Anesthesia Complications and No Family Hx of Anesthesia Complications History of PONV No Hx of PONV and No Hx of Motion Sickness Social History Smoking Status: Former smoker Do You Dip or Chew Tobacco: No Smoking End Date: 2015 Hx Alcohol Use: Yes Alcohol type: beer alcohol intake frequency: holidays/special occasions only Hx Substance Use: Yes (CBD OIL) Testing Laboratory Results 03/22/19 12:32 03/22/19 12:32 PT 10.9 Seconds (9.0-12.0) 03/22/19 12:32 INR 1.1 (0.9-1.1) 03/22/19 12:32 APTT 28.0 Seconds (21.0-31.0) 03/22/19 12:32 Hemoglobin A1c 5.1 % (4.5-5.6) 03/22/19 12:32 Urine Color Dark Yellow 03/22/19 12:40 Urine Appearance Clear (Clear) 03/22/19 12:40 Urine pH 7.0 (4.5-7.5) 03/22/19 12:40 Ur Specific [place] 1.018 (1.000-1.030) 03/22/19 12:40 Urine Protein Negative (Negative) 03/22/19 12:40 Urine Glucose (UA) Negative (Negative) 03/22/19 12:40 Urine Ketones Negative (Negative) 03/22/19 12:40 Urine Nitrite Negative (Negative) 03/22/19 12:40 Ur Leukocyte Esterase Negative (Negative) 03/22/19 12:40 03/22/19 12:40 Urine Culture - Final Urine,Clean Catch Gram positive bacilli Other Testing Electrocardiogram Date: 11/30/18 SB with first degree AVB at 59bpm. iRBBB. Chest X-Ray Date: 11/30/18 Findings: + NAD Echocardiogram Date: 03/02/17 EF 55%. Mild cLVH. Impaired LV relaxation. No significant valvular disease. Stress Test Date: 03/02/17 Type: nuclear (Lexiscan) Abnormal SPECT perfusion imaging with mild myocardial ischemia (inferolateral segments). Stress EKG normal. EF 50-55%. 54% MPHR. Subsequent cardiac cath 09/09/17* Cardiac Catheterization Date: 09/09/17 Patent ramus intermedius stent with otherwise mild to moderate disease. 80% focal RV branch stenosis ("RV branch is relatively small sized vessel to consider for stenting"). LVEF 60%. Medicla therapy recommended.
--- NOTE | 2019-04-02 10:00 | History & Physical Report ---
Date of Service April 02, 2019 Assessment & Plan (1) Failed total left knee replacement: I have indicated the patient for revision left total knee replacement. The risks, benefits and complications of surgery were explained to the patient which include but not limited to infection, acute blood loss, DVT/PE, injury to nerves, vessels, bone, soft tissue, arthrofibrosis, chronic pain, failure of the prosthesis, knee dislocation, leg length discrepancy, need for additional surgery, cardiac and pulmonary events and . The patient wished to proceed with surgery and informed consent was obtained at this time. We will plan for lovenox post-operatively for DVT prophylaxis. Upon discharge the patient will be discharged home with home health services. Appropriate clearances by PCP and cariology were obtained. 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 XRs and bone scan demonstrate gross loosening and increased uptake of the tibial component. The patient was worked up extensively, knee aspiration/synovasure, negative for infectious process. The patient has failed outpatient conservative treatments to this point which included NSAIDs, home exercise/walking program. The patient's pain and limited function have progressed to the point where they severely hinder their activities of daily living and they no longer tolerate exercise programs. They are requesting to proceed with revision total knee replacement surgery. Allergies Allergy/AdvReac Type Severity Reaction Status Date / Time No Known Allergies Allergy Verified 04/03/19 05:50 Home Medications Home Medications Medication Instructions Recorded Confirmed Type acetaminophen 1,000 mg PO Q6H PRN 11/23/18 04/03/19 History amlodipine 5 mg PO QAM 11/23/18 04/03/19 History aspirin [Aspirin Low Dose] 81 mg PO QPM 11/23/18 04/03/19 History carvedilol 12.5 mg PO BID 11/23/18 04/03/19 History cholecalciferol (vitamin D3) 2,000 unit PO BID 11/23/18 04/03/19 History [Vitamin D3] olmesartan 40 mg PO QAM 11/23/18 04/03/19 History omeprazole 20 mg PO QAM 11/23/18 04/03/19 History simvastatin 40 mg PO PM 11/23/18 04/03/19 History tamsulosin 0.4 mg PO BID 11/23/18 04/03/19 History Cbd Oil 1 drp PO HS 03/14/19 History fluoxetine 40 mg PO QAM 03/14/19 04/03/19 History metformin 1,000 mg PO BID 03/14/19 04/03/19 History sitagliptin [Januvia] 100 mg PO QAM 03/14/19 04/03/19 History Past Med/Surg History Medical History Anxiety BPH (benign prostatic hyperplasia) CAD (coronary artery disease) STENT X 1 (2009) Diabetes New diagnosis (hgba1c 12.6% on 11/30/18 preop labs) GERD (gastroesophageal reflux disease) CONTROLLED Hearing deficit Hyperlipidemia Hypertension Obesity Osteoarthritis Sleep apnea CPAP Surgical History History of cardiac cath ALL CATHS DONE AT [facility] 2009= STENT X 1, 2017= NO STENTS 2012= NO STENTS 2017= NO STENTS History of total left knee replacement 03/04/17: SAB x1 + PNB at [facility] Hx of colonoscopy Family History Grandfather (Maternal) Family history of diabetes mellitus Social History Preferred Language: Pashto Communication Ability: Effective Beliefs That Will Affect Care: None Current Living Situation: Spouse Feels Safe at Home: Yes Safety Concerns: Feels Safe At This Time Smoking Status: Former smoker Do You Dip or Chew Tobacco: No ; Smoking End Date: 2015 ; Second Hand Exposure: No ; Hx Alcohol Use: Yes Alcohol type: beer Hx Substance Use: Yes (CBD OIL) Review of Systems Review of Systems: All systems reviewed & are unremarkable except as noted in HPI & below Constitutional: as per Subjective / HPI Physical Exam Physical Exam: LLE NVSI +EHL/FHL/TA/GS SILT grossly, +2 DP pulse, compartments soft NT, painful active and passive ROM, 0-120 degrees of flexion, antalgic gait. Constitutional: WD/WN, vitals as above Results & Data Diagnostic Findings XR's of left knee demonstrate extensive osteolysis of the tibial component, medial, lateral and posterior to the stem.
[2019-04-03] MEDS ORDERED: CeleBREX 200 MG CAP PO SCH (06:00)
[2019-04-03] MEDS ORDERED: CEFAZOLIN 3000MG 72.5 ML IV SCH (06:00)
[2019-04-03] MEDS ORDERED: ROPIVACAINE 0.5% HCL/PF 150 MG, BUPIVACAINE 0.5% MPF 30 ML, EPINEPHrine 30MG/30ML (OR U... INFIL SCH (06:00)
[2019-04-03] MEDS ORDERED: TRANEXAMIC ACID 1,000 MG **IV Pre-op IV SCH (06:00)
[2019-04-03] MEDS ORDERED: LR 500ML BOLUS, THEN 15ML/HR IV SCH ×2 (06:00)
[2019-04-03] MEDS ORDERED: FAMOTIDINE 20 MG TAB PO SCH (06:00)
[2019-04-03] MEDS ORDERED: METOCLOPRAMIDE HCL 10 MG TABLET PO SCH (06:00)
[2019-04-03] MEDS ORDERED: ACETAMINOPHEN 500 MG TAB PO SCH (06:00)
[2019-04-03] MEDS ORDERED: dexAMETHasone 4 MG TAB PO SCH (06:00)
[2019-04-03] MEDS ORDERED: TRANEXAMIC ACID 1,000 MG **IV Intra-op IV SCH (06:30)
[2019-04-03] MEDS ORDERED: ROPIVACAINE 0.5% 5 MG/ML 30 ML VIAL ONE (06:31)
[2019-04-03] MEDS ORDERED: BUPIVACAINE 0.5 % 5 MG/1 ML PF 10ML VIAL ONE (06:31)
[2019-04-03] MEDS ORDERED: MIDAZOLAM HCL 1 MG/ML 2ML VIAL ONE ×2 (06:43→06:44)
[2019-04-03] MEDS ORDERED: fentaNYL citrate 100 MCG/2 ML VIAL ONE (06:44)
[2019-04-03] MEDS ORDERED: LIDOCAINE HCL 2% MPF (LOCAL) 5 ML VIAL INFIL ONE (06:44)
[2019-04-03] MEDS ORDERED: PROPOFOL IV EMULSION 10 MG/ML 20 ML VIAL IV ONE ×2 (06:44→08:35)
[2019-04-03] MEDS ORDERED: HYDROmorphone INJ 1 MG/ML SYRINGE IV PRN (06:47)
[2019-04-03] MEDS ORDERED: ONDANSETRON INJ 2 MG/ML 2 ML VIAL IV PRN ×2 (06:47→10:38)
[2019-04-03] MEDS ORDERED: KETOROLAC 30 MG/ML VIAL IV PRN (06:47)
[2019-04-03] MEDS ORDERED: ATROPINE SULFATE 0.1 MG/ML 10ML SYR IV PRN (06:47)
[2019-04-03] MEDS ORDERED: PHENYLEPHRINE 100MCG/ML 5ML SYR IV PRN (06:47)
[2019-04-03] MEDS ORDERED: ePHEDrine sulfate 50 MG/ML AMP IV PRN (06:47)
--- NOTE | 2019-04-03 06:56 | History & Physical Bridge Note ---
Date of Service April 03, 2019 History & Physical Bridge Note I have examined the patient, reviewed the History & Physical and in the interval since the performance of the History & Physical I have noted the following changes of clinical significance: no changes noted
[2019-04-03] MEDS ORDERED: BACITRACIN INJ 50,000 UNIT VIAL ONE (07:02)
--- NOTE | 2019-04-03 09:22 | Post Operative Brief Note ---
Immediate Post Op Note v1 Date of Surgery April 03, 2019 Pre & Post Diagnosis Operation Date: 04/03/19 07:00 Pre-Op Diagnosis: aeseptic loosening left knee prosthesis Post-Op Diagnosis: aeseptic loosening left knee prosthesis I identified the patient and participated in the time-out.: Yes Procedure Operation Date: 04/03/19 07:00 Actual Procedures p Left Total Knee Revision Arthroplasty, Tibia(Left) - Darshan Hernandez DO Surgeon Darshan Hernandez DO Fire Control Officer Krystian Bowers Estimated Blood Loss 225 Findings Consistent with Post-Op Diagnosis Fluids 1800 cc LR Drains Hemovac Drain Anesthesia Type Spinal MAC Complications none Disposition Disposition: Recovery Room Overlapping Procedure I was present for: the critical portions of procedure. I was immediately available: during the entire case. Back up surgeon: was not required during procedure.
--- NOTE | 2019-04-03 09:49 | Operative Report ---
Post Operative Report Pre & Post Diagnosis Operation Date: 04/03/19 07:00 Pre-Op Diagnosis: aeseptic loosening left knee prosthesis Post-Op Diagnosis: aeseptic loosening left knee prosthesis I identified the patient and participated in the time-out.: Yes Procedure Operation Date: 04/03/19 07:00 Actual Procedures p Left Total Knee Revision Arthroplasty, Tibia(Left) - Darshan Hernandez DO Surgeon Darshan Hernandez DO Solar Mechanical Engineer Krystian Bowers Estimated Blood Loss 225 Findings Consistent with Post-Op Diagnosis Fluids 1800 cc LR Specimens none Drains HMV deep to fascia Anesthesia Type Spinal MAC Complications none Disposition Disposition: Recovery Room Indications The patient is a 68 year old male who presents with complaints of 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 XRs and bone scan demonstrate gross loosening and increased uptake of the tibial component. The patient was worked up extensively, knee aspiration/synovasure, negative for infectious process. The patient has failed outpatient conservative treatments to this point which included NSAIDs, home exercise/walking program. The patient's pain and limited function have progressed to the point where they severely hinder their activities of daily living and they no longer tolerate exercise programs. They are requesting to proceed with revision total knee replacement surgery. I have indicated the patient for revision left total knee replacement. The risks, benefits and complications of surgery were explained to the patient which include but not limited to infection, acute blood loss, DVT/PE, injury to nerves, vessels, bone, soft tissue, arthrofibrosis, chronic pain, failure of the prosthesis, knee dislocation, leg length discrepancy, need for additional surgery, cardiac and pulmonary events and . The patient wished to proceed with surgery and informed consent was obtained at this time. We will plan for lovenox post-operatively for DVT prophylaxis. Upon discharge the patient will be discharged home with home health services. Appropriate clearances by PCP and cariology were obtained. Description of Procedure Following induction of spinal anesthesia, a tourniquet was applied to the proximal aspect of the thigh and the patient's left leg was prepped and draped in the usual sterile manner. A timeout was performed and site toma verified. Limb was exsanguinated with an esmarch bandage and tourniquet was inflated to 300 mmHg. The prior incision was identified and a longitudinal midline incision was made over the anterior knee. Previous surgical scar was excised. Subcutaneous tissue was sharply dissected down to fascia. Electrocautery was used for hemostasis. Next a medial parapatellar arthrotomy was performed. Meticulous removal of hypertrophic synovium and scar tissue was removed with Bovie. The patella was subluxed laterally and the knee was flexed. A leonard retractor was used to expose the synovium above on the anterior aspect of the femur and removed down to bone. Next, the anterior fat pad was removed to aid in visualization. The medial face of the tibia was cleared of soft tissue first with a bovie and a dugan elevator. This tissue was retracted posteriorly using a blunt hohmann. Once adequate access was obtained to the total knee prosthesis we removed the tibial articular surface. Next we turned our attention to the femoral component meticulous removal of scar tissue around the implant was performed. The femoral component was inspected thoroughly and found to be well fixed and without signs of loosening or osteolysis. Next, we gained access to the proximal tibia with two bent Hohmanns placed medial and lateral to aid in visualization. Utilizing the microsagittal saw the tibial component and cement interface was disrupted followed by flexible osteotomes. Utilizing flat wide osteotomes we were able to lever the component out of the bone and remove with a bone tamp and mallet. The tibial component was easily removed and there was minimal bone loss. Next we meticulously removed remaining cement and cleared the proximal tibia of any remaining soft tissue. We gained access to the intramedullary tibia and intramedullary membrane was scraped with curved curettes. Next sequential intramedullary reaming was performed by hand on the tibia until adequate bone chatter was appreciated. Reaming was stopped at 16 mm on the tibia . At this time the tourniquet was dropped at 60 minutes. The intramedullary reamer was left in the tibia and the T-handle was removed. The proximal tibia cutting guide was attached to the intramedullary reamer and pinned into place. Intramedullary reamer was removed and the proximal tibia was cut removing minimal bone until there was a flat cut perpendicular to the mechanical axis. The cutting guide was removed and boss reamer ran over the IM reamer clearing proximal bone. All instruments were removed and confirmed the cut was confirmed with drop katerine and spacer block. The IM reamer was reinserted and a size 5 tibia was selected. Offset and position was noted and the tibial plate was pinned into place with appropriate rotation. The IM reamer was removed and preparation of the tibia was completed utilizing the matching tibial drill and broach. The trial tibial plate was removed and the trial size 5 tibia with 4mm offset [id number] fluted stem were attached and impacted into place. This provided good fit and fill of the proximal tibia. A 13mm TS tibial articular surface was trialed. Sequential trialing of tibial sizes was performed, increasing to a tibial articular surface size of 19mm. Varus-valgus balance was assessed in 0 degrees of extension and 30, 60 and 90 degrees of flexion. A final tibial articular surface size 19mm TS was chosen. Access was gained to the patella and meticulous removal of fibrous soft tissue surrounding the patella button was removed. The patella was cleared of any remaining osteophytes utilzing the rongour. The patella button was found to be stable and well fixed without signs of wear. The knee was found to be well balanced, well aligned, with excellent patellar tracking. The leg was rewrapped with new Esmarch and tourniquet inflated once again at this time. The trials were removed and final components were obtained and assembled on the back table. Aquamantys was utilized for any bleeders and Orthomix solution injected into the posterior capsule. The knee was irrigated with copious amounts of sterile saline solution mixed with bacitracin. Access to the proximal tibia was once again obtained utilizing two bent Hohmann retractors and the proximal tibia was dried with lap sponges. The final components were cemented into place utilizing Palacos cement and all excess cement was removed. A trial tibial articular surface was placed while cemented hardened. Knee stability was once again assessed and the final component inserted. The knee was injected with Orthomix solution. Next we performed a Betadine soak for 3 minutes followed by repeat irrigation with copious amounts of sterile saline solution mixed with bacitracin. Hemovac drains 2 were inserted deep to the capsule. The capsulotomy was closed with #1 Vicryl followed by subcutaneous closure with 2-0 Vicryl suture. Skin closure was performed using odessa and sterile dressings were applied which included Silverlon, drain sponge, Webril and loretta wrap. The tourniquet was deflated once again at 112 minutes of total time. The patient was extubated in the OR and transported to the PACU in stable condition. Due to the complex nature of the procedure, the entire surgery was performed with the operational assistance of Krystian Bowers PA-C. The personal assistant, under direct supervision, was involved in the actual performance of all aspects of the surgical procedure including patient positioning, hemostasis, tissue retraction, instrument management and wound closure. I attest to the content of the Intraoperative Record and any orders documented therein. Any exceptions are noted below.
--- NOTE | 2019-04-03 10:22 | XRay Report ---
XR knee LT 1 or 2V routine CLINICAL HISTORY: Surgical Post Op COMPARISON: 03/04/2017 DISCUSSION: There are postsurgical changes of a total left knee arthroplasty revision. There is a ajnn g tibial spike. Femoral tibial components appear well seated. There are overlying skin odessa. There is an overlying surgical drain. There is air within the soft tissues consistent with recent surgery. IMPRESSION: Postsurgical changes of a total left knee arthroplasty revision Electronically signed by: Sammy Larkin M.D. 04/03/2019 10:20 AM
[2019-04-03] MEDS ORDERED: NALOXONE HCL 0.4 MG/1 ML VIAL/CARP IV PRN (10:38)
[2019-04-03] MEDS ORDERED: HYDROmorphone INJ 0.5 MG/0.5 ML SYR IV PRN (10:38)
[2019-04-03] MEDS ORDERED: METOCLOPRAMIDE HCL INJ 5 MG/ML 2 ML VIAL IV PRN (10:38)
[2019-04-03] MEDS ORDERED: SODIUM CHLORIDE 0.9% 1000ML 1,000 ML IV SCH (10:38)
[2019-04-03] MEDS ORDERED: MAGNESIUM HYDROXIDE SUSP 30 ML UDC PO PRN (10:38)
[2019-04-03] MEDS ORDERED: BISACODYL 10 MG SUPP PR PRN (10:38)
[2019-04-03] MEDS ORDERED: PHARMACY GLYCEMIC MGMT CONSULT PRN (10:51)
[2019-04-03] MEDS ORDERED: INSULIN GLARGINE SOLOSTAR 100 UNITS/ML 3 ML PEN SC ONE ×2 (11:30→21:00)
[2019-04-03] MEDS ORDERED: GLUCOSE 40% GEL 15 GM TUBE PO PRN (11:45)
[2019-04-03] MEDS ORDERED: CARBOHYDRATES FOR HYPOGLYCEMIA PO PRN (11:45)
[2019-04-03] MEDS ORDERED: GLUCAGON FOR INJ 1 MG VIAL IM PRN (11:45)
[2019-04-03] MEDS ORDERED: DEXTROSE 50% 50 ML SYRINGE IV PRN (11:45)
[2019-04-03] MEDS ORDERED: GLUCOSE 10 TABS/TUBE PO PRN (11:45)
--- NOTE | 2019-04-03 11:50 | Pharmacy Report ---
Glycemic Control Consultation - Date of Service April 03, 2019 - Scope Scope: Glycemic Pharmacist consulted for glycemic control and to write orders per [facility] inpatient glycemic control protocol - Objective Weight: 122.158 kg Accuchecks BSG (last 24hrs): 04/03/19 04/03/19 05:14 10:00 POC Glucose 94 109 H HbA1c: Hemoglobin A1c 5.1 % (4.5-5.6) 03/22/19 12:32 - Recent Pertinent Medications Outpatient Anti-diabetic Regimen: * Metformin 1 g po BID * Stiagliptin 100 mg po qAM * A1c = 5.1 % on 03/22/19 Risk Factors for Insulin Resistance: * Steroids: dexamethasone 8 mg po preop * Infection: cefazolin periop * Recent Surgery: POD 0 s/p L TKA revision * Diet: T2DM - Assessment & Plan Assessment & Plan: ASSESSMENT: * 68 yo M with T2DM well controlled per recent HbA1c on two oral agents as an outpatient * Pt is maintained on oral antidiabetic agents as an outpatient * Oral agents are not recommended for inpatient use d/t drug interactions, changing PO intake, and difficulty titrating for acute hyper/hypoglycemia. ADA recommends re-initiating outpatient oral agents 1-2 days prior to discharge if/when appropriate if they were held on admission. * Will hold oral agents for admission and utilize SQ basal bolus insulin regimen which is the recommended regimen for inpatient glycemic control. * Will utilize more stringent goal of 110-140mg/dL as tighter glycemic control is warranted to facilitate wound/infection healing. * Steroid dose this AM anticipated to increase insulin resistance (in addition to physiologic stress due to surgery) * Will initiate Lantus at 0.2 units/kg x1 and provide supplemental Lantus this PM for BSG > 140 mg/dL * Will initiate Novolog at weight-based moderate stress estimate and add an overnight check PLAN FOR INPATIENT GLYCEMIC CONTROL: * Hold outpatient oral diabetes medications. Anticipate ability to resume metformin on POD 2, assuming SCr OK. * Basal insulin: Lantus 25 units SC x1 now. Additional tonight based on BSG. * 0 units for BSG less than 140 mg/dL * 5 units for BSG 140-180 mg/dL * 10 units for BSG 180 mg/dL or greater * Anticipate short-term need for Lantus, lasting only until tomorrow at most. * Bolus insulin * NovoLog per scale ACHS or Q6hrs while NPO * Goal Range: Low 110 mg/dL - High 140 mg/dL * Correction Factor: 20 mg/dL/unit * Nutritional / Prandial insulin per carb ratio of 1 unit per 6 grams CHO consumed * Please note that the plan above was derived based on current level of insulin resistance and hospital stress. These recommendations are appropriate for inpatient admission only. Plan of care upon discharge will need to be reassessed to avoid potential outpatient hypo/hyperglycemia. Thank you.
--- NOTE | 2019-04-03 12:00 | Anesthesiology Progress Note ---
Date of Service April 03, 2019 Anesthesia Post Procedure Vital Signs Vital Signs: Temp Pulse Pulse Resp BP Pulse Ox 04/03/19 11:30 66 16 153/93 H 98 04/03/19 11:00 62 16 148/93 H 99 04/03/19 10:39 36.6 C 69 17 134/87 94 04/03/19 10:25 36.4 C L 70 18 131/79 94 04/03/19 10:15 71 18 132/80 93 04/03/19 10:05 74 17 120/81 94 04/03/19 09:57 36.2 C L 74 18 134/90 93 04/03/19 06:57 36.6 C 89 20 195/96 H 96 04/03/19 05:40 36.4 C L 75 20 158/99 H 96 Transfer of Care Handoff Completed per policy Notes Mental Status: alert / awake / arousable Patient Amnestic to Procedure: Yes Nausea / Vomiting: adequately controlled Pain: adequately controlled Airway Patency, RR, SpO2: stable & adequate BP & HR: stable & adequate Hydration State: stable & adequate Neuraxial Anesthesia: was administered and sensory block is resolving Anesthetic Complications: no major complications apparent
--- NOTE | 2019-04-03 12:36 | Orthopedic Progress Note ---
Date of Service April 03, 2019 Assessment & Plan (1) Failed total left knee replacement: Status post revision left total knee arthroplasty, tibia -Ancef x24 -DVT prophylaxis: SCDs, teds,Lovenox 40 mg daily -Weight-bear as tolerates left lower extremity -PT/OT -Monitor Hemovac output -A.m. lab -Postoperative x-ray demonstrates a well aligned well fixed orthopedic prosthesis without evidence of fracture or dislocation. -DC planning Subjective Post Operative Progress Note Patient seen sitting up in bed, comfortable, denies complaints, pain well controlled, no acute issues. Still feeling the effects of spinal anesthesia. Denies fevers, chills, nausea, vomiting, chest pain or shortness of breath. Review of Systems Review of Systems: All systems reviewed & are unremarkable except as noted in HPI & below Constitutional: as per Subjective / HPI Physical Exam Physical Exam: Left lower extremity physical exam limited secondary to spinal anesthesia, +2 dorsalis pedis pulse, compartment soft nontender, dressing clean dry and intact, Hemovac drain intact. Constitutional: WD/WN, vitals as above Results & Data Vital Signs (Past 12 Hours) Vital Signs Temp Pulse Pulse Resp BP Pulse Ox 04/03/19 11:30 66 16 153/93 H 98 04/03/19 11:00 62 16 148/93 H 99 04/03/19 10:39 36.6 C 69 17 134/87 94 04/03/19 10:25 36.4 C L 70 18 131/79 94 04/03/19 10:15 71 18 132/80 93 04/03/19 10:05 74 17 120/81 94 04/03/19 09:57 36.2 C L 74 18 134/90 93 04/03/19 06:57 36.6 C 89 20 195/96 H 96 04/03/19 05:40 36.4 C L 75 20 158/99 H 96
[2019-04-03] MEDS: INSULIN ASPART 100 UNITS/ML 3 ML PEN SC SCH ×3 (12:52→21:22)
[2019-04-03] MEDS: ACETAMINOPHEN 500 MG TAB PO SCH ×2 (13:14→21:15)
[2019-04-03] MEDS ORDERED: CEFAZOLIN 3000MG/72.5 ML BAG IV SCH (14:00)
[2019-04-03] MEDS: CEFAZOLIN 3,000 MG in DEXTROSE 5% 50 ML IV SCH ×2 (14:01→22:24)
[2019-04-03] MEDS: OXYCODONE HCL IR 5 MG TAB (IMMEDIATE RELEASE) PO PRN ×2 (18:42→22:27)
[2019-04-03] MEDS: CARVEDILOL 12.5 MG TAB PO SCH (21:14)
[2019-04-03] MEDS: TAMSULOSIN HCL 0.4 MG CAP PO SCH (21:14)
[2019-04-03] MEDS: DOCUSATE SODIUM 100 MG CAP PO SCH (21:14)
[2019-04-03] MEDS: SENNA 8.6 MG TAB PO SCH (21:15)
[2019-04-03] MEDS: SIMVASTATIN 40 MG TAB PO SCH (21:15)
[2019-04-04] MEDS ORDERED: INSULIN ASPART 100 UNITS/ML 3 ML PEN SC ONE (02:00)
[2019-04-04] MEDS: ACETAMINOPHEN 500 MG TAB PO SCH ×3 (05:37→20:13)
[2019-04-04 06:00] LABS: Hematocrit (blood only) 32.2 % (42-52); Hemoglobin 11.2 g/dL (14.0-18.0); Mean Corpuscular Hemoglobin 29.3 pg (25-34); Mean Corpuscular Hgb Conc 34.8 g/dL (32-36); Mean Corpuscular Volume 84.3 fL (80-100); Mean Platelet Volume 8.4 fL (7.4-10.4); Platelet Count 141 K/uL (130-400); RDW Coefficient of Variation 13.1 % (11.5-14.5); RDW Standard Deviation 39.7 fL (36.4-46.3); Red Blood Count 3.82 M/uL (4.7-6.1); White Blood Count 9.08 K/uL (4.8-10.8)
[2019-04-04 06:39] LABS: BUN Creatinine Ratio 17.1 (10-20); Calcium 8.9 mg/dl (8.5-10.1); Est GFR (African American) 54.1; Est GFR (Non-African American) 46.7; Potassium 3.7 mmol/L (3.5-5.1)
--- NOTE | 2019-04-04 07:56 | Anesthesiology Progress Note ---
Date of Service April 04, 2019 Anesthesia Post Procedure Vital Signs Vital Signs: Temp Pulse Pulse Resp BP Pulse Ox 04/04/19 07:00 36.3 C L 66 16 150/88 H 94 04/04/19 03:59 37.1 C 68 15 142/80 H 95 04/03/19 22:54 36.6 C 70 15 134/85 93 04/03/19 19:00 36.7 C 79 17 139/86 96 04/03/19 15:40 36.5 C 72 17 137/81 95 04/03/19 13:36 36.3 C L 77 16 157/97 H 97 04/03/19 11:30 66 16 153/93 H 98 04/03/19 11:00 62 16 148/93 H 99 04/03/19 10:39 36.6 C 69 17 134/87 94 04/03/19 10:25 36.4 C L 70 18 131/79 94 04/03/19 10:15 71 18 132/80 93 04/03/19 10:05 74 17 120/81 94 04/03/19 09:57 36.2 C L 74 18 134/90 93 Notes Mental Status: alert / awake / arousable and participated in evaluation Nausea / Vomiting: adequately controlled Pain: adequately controlled Airway Patency, RR, SpO2: stable & adequate BP & HR: stable & adequate Hydration State: stable & adequate Neuraxial Anesthesia: was administered and sensory block resolved Anesthetic Complications: no major complications apparent and Pt Satisfied with anesthetic care
[2019-04-04] MEDS: OXYCODONE HCL IR 5 MG TAB (IMMEDIATE RELEASE) PO PRN ×2 (08:40→20:11)
[2019-04-04] MEDS: DOCUSATE SODIUM 100 MG CAP PO SCH ×2 (08:41→20:13)
[2019-04-04] MEDS: CARVEDILOL 12.5 MG TAB PO SCH ×2 (08:42→20:12)
[2019-04-04] MEDS: FLUOXETINE HCL 20 MG CAP PO SCH (08:42)
[2019-04-04] MEDS: OLMESARTAN MEDOXOMIL 40 MG TAB PO SCH (08:42)
[2019-04-04] MEDS: PANTOprazole 40 MG TAB PO SCH (08:42)
[2019-04-04] MEDS: TAMSULOSIN HCL 0.4 MG CAP PO SCH ×2 (08:43→20:14)
[2019-04-04] MEDS: MULTIVITAMIN TAB PO SCH (08:43)
[2019-04-04] MEDS: AMLODIPINE BESYLATE 5 MG TAB PO SCH (08:43)
[2019-04-04] MEDS: ENOXAPARIN INJ 40 MG/0.4 ML SYR SQ SCH (08:44)
[2019-04-04] MEDS: INSULIN ASPART 100 UNITS/ML 3 ML PEN SC SCH ×4 (08:47→20:51)
[2019-04-04] MEDS ORDERED: SODIUM CHLORIDE 0.9% 500 ML IV SCH (09:15)
--- NOTE | 2019-04-04 09:36 | Orthopedic Progress Note ---
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 lab - hgb 11.2, Cr 1.53, will give 500cc NS bolus now and monitor labs -Postoperative x-ray demonstrates a well aligned well fixed orthopedic prosthesis without evidence of fracture or dislocation. -DC planning Subjective Post Operative Progress Note Patient seen sitting up in bed, comfortable, denies complaints, pain well con trolled, no acute issues. Denies fevers, chills, nausea, vomiting, chest pain or shortness of breath. Review of Systems Review of Systems: All systems reviewed & are unremarkable except as noted in HPI & below Constitutional: as per Subjective / HPI Eyes: as per Subjective / HPI Physical Exam Physical Exam: LLE NVSI +EHL/FHL/TA/GS SILT grossly, +2 DP pulse, compartments soft NT, dressing cdi. HMV in place Constitutional: WD/WN, vitals as above Results & Data Vital Signs (Past 12 Hours) Vital Signs Temp Pulse Resp BP Pulse Ox 04/04/19 07:00 36.3 C L 66 16 150/88 H 94 04/04/19 03:59 37.1 C 68 15 142/80 H 95 04/03/19 22:54 36.6 C 70 15 134/85 93
[2019-04-04] MEDS ORDERED: INSULIN GLARGINE SOLOSTAR 100 UNITS/ML 3 ML PEN SC ONE ×2 (11:30→21:00)
[2019-04-04] MEDS: SIMVASTATIN 40 MG TAB PO SCH (20:14)
[2019-04-04] MEDS: SENNA 8.6 MG TAB PO SCH (20:14)
[2019-04-05 05:27] LABS: Hematocrit (blood only) 31.2 % (42-52); Hemoglobin 10.7 g/dL (14.0-18.0); Mean Corpuscular Hemoglobin 29.5 pg (25-34); Mean Corpuscular Hgb Conc 34.3 g/dL (32-36); Platelet Count 137 K/uL (130-400); RDW Coefficient of Variation 13.4 % (11.5-14.5); Red Blood Count 3.63 M/uL (4.7-6.1); White Blood Count 5.84 K/uL (4.8-10.8)
[2019-04-05] MEDS: ACETAMINOPHEN 500 MG TAB PO SCH ×2 (05:45→13:54)
[2019-04-05 05:59] LABS: BUN Creatinine Ratio 17.2 (10-20); Calcium 8.5 mg/dl (8.5-10.1); Creatinine Clr Calc Pharmacy 72.1 ml/min; Est GFR (African American) 60.3
[2019-04-05] MEDS: OXYCODONE HCL IR 5 MG TAB (IMMEDIATE RELEASE) PO PRN ×2 (06:41→11:54)
[2019-04-05] MEDS: DOCUSATE SODIUM 100 MG CAP PO SCH (07:31)
[2019-04-05] MEDS: PANTOprazole 40 MG TAB PO SCH (07:31)
[2019-04-05] MEDS: AMLODIPINE BESYLATE 5 MG TAB PO SCH (07:31)
[2019-04-05] MEDS: FLUOXETINE HCL 20 MG CAP PO SCH (07:31)
[2019-04-05] MEDS: MULTIVITAMIN TAB PO SCH (07:31)
[2019-04-05] MEDS: ENOXAPARIN INJ 40 MG/0.4 ML SYR SQ SCH (07:31)
[2019-04-05] MEDS: OLMESARTAN MEDOXOMIL 40 MG TAB PO SCH (07:32)
[2019-04-05] MEDS: CARVEDILOL 12.5 MG TAB PO SCH (07:32)
[2019-04-05] MEDS: TAMSULOSIN HCL 0.4 MG CAP PO SCH (07:32)
[2019-04-05] MEDS: INSULIN ASPART 100 UNITS/ML 3 ML PEN SC SCH ×2 (07:33→12:59)
--- NOTE | 2019-04-05 07:42 | Orthopedic Progress Note ---
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 lab - hgb 10.7, Cr 1.40, -Postoperative x-ray demonstrates a well aligned well fixed orthopedic prosthesis without evidence of fracture or dislocation. -DC planning - home with POD#1 -Ancef x24 -DVT prophylaxis: SCDs, teds,Lovenox 40 mg daily -Weight-bear as tolerates left lower extremity -PT/OT -Monitor Hemovac output - 225/570cc -A.m. lab - hgb 11.2, Cr 1.53, will give 500cc NS bolus now and monitor labs -Postoperative x-ray demonstrates a well aligned well fixed orthopedic prosthesis without evidence of fracture or dislocation. -DC planning Subjective Post Operative Progress Note Patient seen sitting up in bed, comfortable, denies complaints, pain well controlled, no acute issues. Denies fevers, chills, nausea, vomiting, chest pain or shortness of breath. Review of Systems Review of Systems: All systems reviewed & are unremarkable except as noted in HPI & below Constitutional: as per Subjective / HPI Physical Exam Physical Exam: LLE NVSI +EHL/FHL/TA/GS SILT grossly, +2 DP pulse, compartments soft NT, dressing cdi. Constitutional: WD/WN, vitals as above Results & Data Vital Signs (Past 12 Hours) Vital Signs Temp Pulse Resp BP Pulse Ox 04/05/19 06:45 36.5 C 71 16 151/97 H 94 04/04/19 23:38 36.8 C 66 16 142/86 H 96
--- NOTE | 2019-04-06 19:05 | Discharge Summary ---
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 XRs and bone scan demonstrate gross loosening and increased uptake of the tibial component. The patient was worked up extensively, knee aspiration/synovasure, negative for infectious process. The patient has failed outpatient conservative treatments to this point which included NSAIDs, home exercise/walking program. The patient's pain and limited function have progressed to the point where they severely hinder their activities of daily living and they no longer tolerate exercise programs. They are requesting to proceed with revision total knee replacement surgery. Principal Diagnosis Revision left total knee replacement Discharge Exam LLE NVSI +EHL/FHL/TA/GS SILT grossly, +2 DP pulse, compartments soft NT, dressing cdi. Constitutional WD/WN, vitals as above Discharge Data Allergies Allergy/AdvReac Type Severity Reaction Status Date / Time No Known Allergies Allergy Verified 04/03/19 05:50 Consultations 04/03/19 10:38 Consult Case Management - Discharge Planning Routine Procedures Performed Operation Date: 04/03/19 07:00 Actual Procedures p Left Total Knee Revision Arthroplasty, Tibia(Left) - Darshan Hernandez DO Ordered Studies 04/03/19 05:00 US - OR guided needle placemen Routine Hospital Course (1) Failed total left knee replacement: The patient is a 68 -year-old male who presents with aseptic loosening of left total knee arthroplasty and failed outpatient conservative treatments including NSAIDs, bracing, injections and home walking/exercise program. The patient's symptoms have progressed to the point where it has been difficult to perform even normal activities of daily living. I indicated the patient for a revision left total knee arthroplasty, the risks, benefits and complications of the procedure include but not limited to infection, bleeding, damage to bone, nerves, vessels, surrounding soft tissue, may develop blood clots, loss of function, leg length discrepancy, dislocation, failure of the components, loosening of the components, the need for additional surgery and . The patient wished to proceed with surgery at this time and informed consent was obtained. Hospital Course: On 04/03/19 the patient was taken to the operating room, adequate anesthesia administered and underwent a revision left total knee arthroplasty. The patient tolerated the procedure well and was taken to the PACU in stable condition. Post-operatively the patient was started on a DVT ppx medication and given appropriate IV antibiotics. Consults were placed to physical therapy, occupational therapy and case management. On POD#1, the patient did well overnight and their pain was well controlled. Labs were drawn and the Hgb was 11.2, Cr 1.53, this was slightly increased from pre-operative labs. A 500cc fluid bolus was given and labs monitored. The patient progressed well with PT. The patients HMV drain output was high the first day >100cc shift and the decision was to leave in and continue to monitor. On POD#2, the patient continued to progress well with PT and his pain was well controlled. Labs were drawn, hgb 10.7 and Cr 1.40, this was near his baseline. HMV drain output had slowed down and drain was DC'd. Dressings were changed at this time and the incision was clean, dry and intact. The patients hospital stay was relatively uneventful and they were deemed stable by the orthopedic team and consultants to be discharged home with on 04/05/19. Discharge Instructions: Upon discharge the patient may weight bear as tolerates through their operative extremity. They were instructed to keep the incision clean and dry at all times. The patient may shower but should not submerge the incision, avoid bathing, pools and hot tubes. The patient was given a script for pain medication and should take as instructed. The patient was given a script for DVT ppx Lovenox 40mg daily and should take as directed. The patient was instructed to not drive or travel for long distances until cleared to do so. If the patient develops any symptoms of fevers, chills, nausea, vomiting, increased redness, swelling, pain or drainage from the surgical site, they should notify the office and/or proceed to the nearest emergency room. The patient should follow up in 10-14 days after surgery for their routine post-operative follow-up appointment and should call the office to confirm the date and time. Status post revision left total knee arthroplasty, tibia POD#2 -Ancef x24 -DVT prophylaxis: SCDs, teds,Lovenox 40 mg daily -Weight-bear as tolerates left lower extremity -PT/OT -Monitor Hemovac output - DC today -A.m. lab - hgb 10.7, Cr 1.40, -Postoperative x-ray demonstrates a well aligned well fixed orthopedic prosthesis without evidence of fracture or dislocation. -DC planning - home with POD#1 -Ancef x24 -DVT prophylaxis: SCDs, teds,Lovenox 40 mg daily -Weight-bear as tolerates left lower extremity -PT/OT -Monitor Hemovac output - 225/570cc -A.m. lab - hgb 11.2, Cr 1.53, will give 500cc NS bolus now and monitor labs -Postoperative x-ray demonstrates a well aligned well fixed orthopedic prosthesis without evidence of fracture or dislocation. -DC planning Total Time Total Time Spent Total Time Spent (In Minutes): 60 minutes Discharge Plan Discharge Items Patient Disposition: Home - Home Health Services Reason For Visit: LEFT KNEE PAIN D/T INTERNAL ORTHOPEDIC PROSTHETIC Discharge Diagnosis: Revision left total knee arthroplasty Condition on Discharge: Good Activity: Per Instructions section Lifting: Wait until after follow-up appointment Bathing: Keep incision dry Bathing Comment: No bathing, pools or hot tubs. Sexual Activity: Wait until after follow-up appointment Exercise/Sports: Wait until after follow-up appointment Driving/Machine Use: No driving Weightbearing: Full weightbearing Non-emergency contact: Primary Care Provider and Surgeon Call non-emergency contact if: you have any medication questions, your symptoms worsen, your pain is not controlled, your pain is worsening, your pain is unusual for you, your pain is concerning for you, you have a fever, your temperature is above 101, your wound has increased redness, your wound has increased drainage and your wound pain has increased Follow-up/Referrals: Aakash Rocha [Primary Care Provider] - Diet: Carb Consistent or DM2 Addtl Attending Provider Instructions: ACTIVITY RECOMMENDATIONS: SELF CARE INSTRUCTIONS AFTER TOTAL KNEE REPLACEMENT A. You may need to continue a physical therapy program after discharge from the hospital. There are several options available to you. Your doctor will assist you in selecting the best one for you. 1. An out-patient facility 2 to 3 times a week for therapy or home therapy. 2. Continue working on all exercises taught to you in the hospital. Your goals should be to increase bending of your knee to 90 degrees and beyond and to fully straighten your knee. B. You may progress at your own pace from walking with a walker or crutches to a cane; then to no assistive devices. C. Make walking a part of your daily routine. Be up as much as comfortable with rest periods throughout the day. Rest with leg elevation is very important. Use the ice wrap frequently for the first 3-4 weeks. D. There are no restrictions on activities. You may ride in a car, shop, participate in senior php web developer and all social activities. E. Wear the long elastic stockings (ROSAS hose) 20 hours a day for 2 weeks after surgery. They can be removed several times a day for laundering and for a bath. F. You may shower, no tub baths until cleared by your doctor. SPECIAL CARE INSTRUCTIONS: VERY IMPORTANT TO READ AND REVIEW A. There are a few signs you need to watch for after you are home. Call [facility] if you notice any of the followin. Increased severe knee pain. Some pain is expected especially when you exercise. 2. Increased swelling in your leg or knee; pain or swelling of the calf muscle in either lower leg. 3. Any fluid drainage from the incision. 4. Shortness of breath or chest pain. B. Please call [facility] at if you have any concerns or questions about your operation or recovery. The doctor or his nurse will return your call promptly. C. You must take antibiotics before dental work, bladder, bowel or other surgery. Your doctor will provide you with a permanent care to carry describing this precaution. IMPORTANT: * REMEMBER TO TAKE LOVENOX 40MG DAILY FOR 4 WEEKS UNLESS OTHERWISE DIRECTED. THIS IS YOUR BLOOD THINNER. * HIGH RISK PATIENTS MAY BE PRESCRIBED A STRONGER BLOOD THINNER. THIS WILL BE PROVIDED AT DISCHARGE. * CALL IF INCREASED PAIN, REDNESS, DRAINAGE OR FEVER GREATER THAT 101. * WEAR ROSAS HOSE 20 HOURS PER DAY FOR 2 WEEKS. * YOU MAY HAVE A LARGE BAND-AID LIKE DRESSING (SILVERON). THIS WILL REMAIN ON YOUR INCISION FOR 7 DAYS, THEN CAN BE REMOVED. IF INCISION IS LEAKING THROUGH DRESSING, CALL THE OFFICE . FOLLOW UP VISIT: If appointment is not already scheduled: Please call [facility] to make a follow-up appointment for 2 weeks after your surgery at . Pending Studies at Discharge: No Stand-Alone Forms: [employer], Opioid Pain Management, Smoking Cessation Medications and DC Order Prescriptions: New enoxaparin 40 mg/0.4 mL Syringe 40 mg subcut Q24H Qty: 28 RF: 0 acetaminophen [Tylenol Extra Strength] 500 mg Tablet 1,000 mg PO Q8 PRN (Reason: pain and/or fever) Qty: 90 RF: 0 oxycodone 5 mg Tablet 5 mg PO Q6H MDD 6 tabs PRN (Reason: pain) Qty: 30 RF: 0 sennosides [Senokot] 8.6 mg Tablet 17.2 mg PO HS PRN (Reason: constipation) Qty: 28 RF: 0 Continued fluoxetine 40 mg Capsule 40 mg PO QAM RF: 0 metformin 500 mg Tablet 1,000 mg PO BID RF: 0 Januvia 100 mg Tablet 100 mg PO QAM RF: 0 Cbd Oil 1 drp PO HS RF: 0 olmesartan 40 mg Tablet 40 mg PO QAM RF: 0 tamsulosin 0.4 mg Capsule 0.4 mg PO BID RF: 0 carvedilol 12.5 mg Tablet 12.5 mg PO BID RF: 0 amlodipine 5 mg Tablet 5 mg PO QAM RF: 0 cholecalciferol (vitamin D3) [Vitamin D3] 2,000 unit Tablet 2,000 unit PO BID RF: 0 simvastatin 40 mg Tablet 40 mg PO PM RF: 0 omeprazole 20 mg Tablet,Delayed Release (Dr/Ec) 20 mg PO QAM RF: 0 Discontinued aspirin [Aspirin Low Dose] 81 mg Tablet,Delayed Release (Dr/Ec) 81 mg PO QPM RF: 0 acetaminophen 500 mg Tablet 1,000 mg PO Q6H PRN (Reason: Pain) RF: 0 Discharge Orders: Discharge Order (Routine); Ordered 04/05/19 Ordered By: Prem Rodriguez/Other Patient Handouts: Enoxaparin Sodium Porcine Solution for injection, Surgery Prevent DVT After Admission Data Admit Date/Time: 04/03/19 09:58 Attending Provider: Darshan Hernandez Admit Provider: Darshan Hernandez Primary Care Provider: Aakash Rocha Other Interventions: Discharge Summary Assessment (RN) Last Done: 04/05/19 11:16 DC Date/Time DO NOT enter until pt leaves facility: 04/05/19 14:34
== END 2019-04-05 14:34 | disposition home health service (06) | DRG 468 ==
LOC: ASU 04:55 → 3E 09:58